=== PATIENT | male | born 1945 | race Caucasian/White ===

== ENCOUNTER 2017-07-06 09:35 | Emergency (ER) | payer SELFPAY, OTHER | END 2017-07-06 12:12 | disposition home or self-care (01) | LOC: FTE 09:35 | DX: R51 Headache (principal) | CPT/HCPCS: 70450; 93005; 99284-25 ==

== ENCOUNTER 2018-03-03 10:52 | Emergency (ER) | payer MEDICARE, OTHER ==
[2018-03-03 12:28] LABS: ADD MAN DIFF? NO
[2018-03-03 12:33] LABS: BASOPHILS % 0.6 % (0.0-2.0); EOSINOPHILS # 0.1 10^3/ul (0.0-0.5); EOSINOPHILS % 2.7 % (0.0-7.0); HEMATOCRIT 47.7 % (42.0-52.0); HEMOGLOBIN 16.9 g/dl (14.0-18.0); LYMPHOCYTES % 19.1 % (15.0-51.0); MEAN CORPUSCULAR HEMOGLOBIN 32.1 pg (29.0-33.0); MEAN CORPUSCULAR HGB CONC 35.4 g/dl (32.0-37.0); MEAN CORPUSCULAR VOLUME 90.7 fl (82.0-101.0); MEAN PLATELET VOLUME 9.9 fl (7.4-10.4); MONOCYTE # 0.4 10^3/ul (0.3-0.9); MONOCYTES % 7.6 % (0.0-11.0); NEUTROPHIL # 3.7 10^3/ul (1.6-7.5); NEUTROPHILS % 69.4 % (39.0-77.0); PLATELET COUNT 216 10^3/UL (140-415); RED BLOOD COUNT 5.26 10^6/ul (4.70-6.10); RED CELL DISTRIBUTION WIDTH 12.9 % (11.5-14.5)
[2018-03-03 12:33] LABS: WHITE BLOOD COUNT 5.3 10^3/ul (4.8-10.8)
[2018-03-03 13:12] LABS: BLOOD UREA NITROGEN 20 mg/dl (7-20); CALCIUM 9.3 mg/dl (8.4-10.2); CARBON DIOXIDE 25 mmol/L (21-31); CHLORIDE 103 mmol/L (97-110); CREATININE 0.97 mg/dl (0.61-1.24); GLUCOSE 123 mg/dl (70-220)
[2018-03-03 13:24] LABS: B-TYPE NATRIURETIC PEPTIDE 33 PG/ML (0-125); TROPONIN-I < 0.012 ng/ml (0.000-0.120)
[2018-03-03 13:28] LABS: ANION GAP 13 (5-13); POTASSIUM 4.4 mmol/L (3.5-5.1); SODIUM 141 mmol/L (135-144)
== END 2018-03-03 14:01 | disposition home or self-care (01) ==
LOC: FTE 10:52
DX: R05 Cough (principal); Z86.73 Personal history of transient ischemic attack (TIA), and cerebral infarction without residual deficits
CPT/HCPCS: 36415; 71046; 80048; 83880; 84484; 85025; 93005; 99285-25

== ENCOUNTER 2018-03-14 10:14 | Emergency (ER) | payer MEDICARE ==
[2018-03-14] MEDS: IPRATROPIUM (NEB) 0.5 MG/2.5 ML AMP HHN (11:44)
[2018-03-14] MEDS: ALBUTEROL 0.083% (NEB) 2.5 MG/3 ML AMP HHN (11:44)
== END 2018-03-14 12:24 | disposition home or self-care (01) ==
LOC: FTE 10:14
DX: R05 Cough (principal); Z86.73 Personal history of transient ischemic attack (TIA), and cerebral infarction without residual deficits
CPT/HCPCS: 71046; 94664; 99283-25